=== PATIENT | male | born 1975 | race Two or more races ===

== ENCOUNTER 2023-07-24 19:46 | Emergency (ER) | payer OTHER ==
[~2023-07-24] VITALS: Ht 165.1 cm; Wt 68.0 kg
== END 2023-07-25 04:18 | disposition home or self-care (01) ==
LOC: EDBD 19:48 → ER 19:48
DX: R53.81 Other malaise (principal); F41.1 Generalized anxiety disorder; Z88.6 Allergy status to analgesic agent

== ENCOUNTER → 2024-08-26 | Emergency (ER) | payer OTHER | END | disposition left against medical advice (07) | LOC: ER 13:41 | DX: Z53.21 Procedure and treatment not carried out due to patient leaving prior to being seen by health care provider (principal) ==